=== PATIENT | female | born 1965 | race Caucasian/White ===

== ENCOUNTER → 2016-11-06 | Outpatient (CLI) | payer BC ==
[~2016-11-06] MED LIST: HYDR-4246 PO; HYDR25TA PO; IBUP-1547 PO; LEVO50TA4 PO; MULT-399 PO; OMEG10006 PO; PROP80CA2 PO
== END ==
LOC: WC.BC 08:50
DX: Z12.31 Encounter for screening mammogram for malignant neoplasm of breast (principal); N64.89 Other specified disorders of breast
CPT/HCPCS: 77063; G0202